=== PATIENT | female | born 1995 | race Caucasian/White ===

== ENCOUNTER 2021-04-12 01:37 | Emergency (ER) | payer BC ==
[2021-04-12 02:59] LABS: Protime INR 0.92
[2021-04-12 03:05] LABS: Absolute Lymphocytes (CBC) 1.1 K/uL (0.7-4.9); Basophils % 0.4 % (0-1.3); Hematocrit 39.6 % (36.0-45.0); Lymphocytes % 7.7 % (15.3-44.8); MPV 8.7 fL (7.6-11.3); RBC Red Blood Cell Count 4.51 M/uL (3.86-4.86)
[2021-04-12 03:11] LABS: ALT/SGPT 83 U/L (12-78); AST/SGOT 97 U/L (15-37); Albumin 4.6 g/dL (3.4-5.0); Alkaline Phosphatase 100 U/L (45-117); BUN Blood Urea Nitrogen 8 mg/dL (7-18); Bicarbonate 24 mmol/L (21-32); Bilirubin Direct < 0.1 mg/dL (0-0.2); Bilirubin Total 0.2 mg/dL (0.2-1.0); Glucose Level 128 mg/dL (74-106); Potassium 3.8 mmol/L (3.5-5.1); Protein, Total 8.4 g/dL (6.4-8.2); Sodium Level 145 mmol/L (136-145)
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
[2021-04-12] MEDS ORDERED: ACETAMINOPHEN 500 MG TAB ONE (04:55)
[2021-04-12 05:50] VITALS: TEMP 98.1
[2021-04-12 05:51] VITALS: BP 142/81; O2SAT 99
--- NOTE | 2021-04-12 07:33 | RAD REPORT ---
EXAM DESCRIPTION: RAD - Wrist Left 3 View - 04/12/2021 3:11 am CLINICAL HISTORY: Left wrist pain status post injury FINDINGS: No fracture or dislocation is seen. If the patient continues to have symptoms to suggest an occult fracture then a followup plain film se linnea in 7 days would be recommended
--- NOTE | 2021-04-12 07:33 | RAD REPORT ---
EXAM DESCRIPTION: RAD - Shoulder Right 2 View - 04/12/2021 3:09 am CLINICAL HISTORY: Right shoulder pain FINDINGS: No fracture or dislocation is seen.
--- NOTE | 2021-04-12 07:35 | RAD REPORT ---
EXAM DESCRIPTION: RAD - Hip Left 2 View - 04/12/2021 3:11 am CLINICAL HISTORY: Left hip pain status post injury FINDINGS: No fracture or dislocation is seen.
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
== END 2021-04-12 04:37 | disposition home or self-care (01) ==
LOC: ER 01:37
DX: S00.81XA Abrasion of other part of head, initial encounter (principal); F10.129 Alcohol abuse with intoxication, unspecified; S40.011A Contusion of right shoulder, initial encounter; S60.212A Contusion of left wrist, initial encounter; S70.02XA Contusion of left hip, initial encounter; V49.40XA Driver injured in collision with unspecified motor vehicles in traffic accident, initial encounter
CPT/HCPCS: 36415; 70450; 70486; 71250; 72125; 76377; 80048; 80076; 80320; 85025; 85610; 85730; 86850; 86900; 86901; 99283

== ENCOUNTER 2021-04-12 11:08 | Emergency (ER) | payer BC, SELFPAY ==
[2021-04-12] MEDS ORDERED: IBUPROFEN 400 MG TAB ONE (11:55)
[2021-04-12] MEDS ORDERED: IBUPROFEN 200 MG TAB PO ONE (11:55)
--- NOTE | 2021-04-12 12:10 | RAD REPORT ---
EXAM DESCRIPTION: RAD - Femur Left - 04/12/2021 12:02 pm CLINICAL HISTORY: Left leg pain FINDINGS: No fracture is seen. Small sclerotic densities overlies the left femoral head and distal left femur. These are nonspecific but probably benign. Follow-up x-ray in 2-3 months recommended to assess stability
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
[2021-04-12 12:48] VITALS: TEMP 98.2
[2021-04-12 12:55] VITALS: BP 134/99; O2SAT 100
== END 2021-04-12 12:39 | disposition home or self-care (01) ==
LOC: ER 11:08
DX: M79.605 Pain in left leg (principal); V49.49XD Driver injured in collision with other motor vehicles in traffic accident, subsequent encounter
CPT/HCPCS: 99284